=== PATIENT | female | born 1945 | race Caucasian/White ===

== ENCOUNTER 2021-05-20 05:33 | Day surgery (SDC) | payer MEDICARE, OTHER ==
[2021-05-13 14:16] LABS: BASOPHILS # (AUTO) 0.1 X10'3 (0-0.2); BASOPHILS % (AUTO) 0.7 % (0-1); EOSINOPHILS # (AUTO) 0.1 X10'3 (0-0.9); EOSINOPHILS % (AUTO) 0.8 % (0-6); LYMPHOCYTES # (AUTO) 1.9 X10'3 (1.1-4.8); MEAN CORPUSCULAR HEMOGLOBIN 31.8 PG (27.0-31.0); MEAN CORPUSCULAR HGB CONC 34.1 g/dL (33.0-36.5); MEAN CORPUSCULAR VOLUME 93.1 FL (78-98); MEAN PLATELET VOLUME 7.1 FL (7.4-10.4); MONOCYTES # (AUTO) 0.5 X10'3 (0-0.9); MONOCYTES % (AUTO) 7.3 % (2-12); NEUTROPHILS # (AUTO) 4.9 X10'3 (1.8-7.7); NEUTROPHILS % (AUTO) 66.2 % (42-75); PRE OP HEMATOCRIT 37.7 % (35.0-45.0); PRE OP HEMOGLOBIN 12.9 g/dL (12.0-16.0); PRE OP PLATELET COUNT 285 X10'3 (140-440); RED BLOOD COUNT 4.05 X10'6 (4.20-5.60)
[2021-05-13 14:35] LABS: CLARITY,URINE CLEAR (Clear); COLOR,URINE STRAW (Yellow); GLUCOSE, URINE NEGATIVE (Neg); KETONES,URINE NEGATIVE (Neg); LEUKOCYTE ESTERASE ,URINE NEGATIVE (Neg); NITRITES, URINE NEGATIVE (Neg); OCCULT BLOOD,URINE NEGATIVE (Neg); PROTEIN,URINE NEGATIVE (Neg); UA COLLECTION TYPE CLN CATCH MIDSTREAM; UROBILINOGEN,URINE 0.2 E.U/dL (0.2-1.0)
[2021-05-13 14:48] LABS: ALBUMIN 3.7 G/DL (3.4-5.0); ALKALINE PHOSPHATASE 89 IU/L (46-116); BLOOD UREA NITROGEN 16 MG/DL (7-18); BUN/CREATININE RATIO 19.8 (6.6-38.0); CALCIUM 8.7 MG/DL (8.5-10.1); CHLORIDE 103 MMOL/L (99-107); CREATININE 0.81 MG/DL (0.40-0.90); PRE OP ALT 26 U/L (30-65); PRE OP ANION GAP 7 (8-16); PRE OP AST 24 U/L (10-37); PRE OP BILIRUB, TOTAL 0.6 MG/DL (0.0-1.0); PRE OP GLUCOSE 134 MG/DL (70-104); PRE OP POTASSIUM 3.8 MMOL/L (3.4-5.1); PRE OP SODIUM 140 MMOL/L (135-145); TOTAL CARBON DIOXIDE 29.6 MMOL/L (24-32); TOTAL PROTEIN 7.4 G/DL (6.4-8.2); eGFR 69 ML/MIN
[~2021-05-20] VITALS: Ht 160 cm; Wt 70.5 kg
[2021-05-20] VITALS (16 sets, daily range): BP systolic 115–134; BP diastolic 56–78
[~2021-05-20 05:33] MED LIST: ASPI-611 PO; ATOR20TA66 PO; FISH OIL PO; FLEC100T2 PO; HYDR12.5 PO; LOSA25TA96 PO; MULT-620 PO; cefazolin/dext.iso 2gm/50ml 50 ML IV ONE; famotidine 20mg tablet PO ONE; ringers solution, lacted 1,000 ML IV SCH; vitamin c PO
[2021-05-20] MEDS ORDERED: bacitracin 15gm ointment TP ONE (06:41)
[2021-05-20] MEDS ORDERED: MIDAZolam 1 MG/ML 5ML VIAL ONE (07:30)
[2021-05-20] MEDS ORDERED: fentaNYL/PF 50MCG/1 ML 2ML syringe ONE (07:30)
[2021-05-20] MEDS ORDERED: ROPIVAcaine 0.5% (5mg/ml) 30ml vial ONE (07:33)
[2021-05-20] MEDS ORDERED: propofol 10mg/ml 20ml vial IV ONE (07:36)
[2021-05-20] MEDS ORDERED: sevoflurane 250ml liquid IH ONE (07:36)
[2021-05-20] MEDS ORDERED: dexamethasone sod phosphate 4mg/ml inj. ONE (08:18)
[2021-05-20] MEDS ORDERED: ROPIVAcaine 0.2% (10 MG/5 ML) BOLUS INJECTION POPLITEAL PRN (09:25)
[2021-05-20] MEDS ORDERED: ondansetron/PF 4mg/2ml inj IV PRN (09:25)
[2021-05-20] MEDS ORDERED: ROPIVAcaine 0.2%/PF PUMP/bolus 545 ML POPLITEAL SCH (09:25)
[2021-05-20] MEDS ORDERED: morphine 2 MG/ML inj. syringe IV PRN (09:25)
[2021-05-20] MEDS ORDERED: morphine 4 MG/ML inj SYRINge IV PRN (09:25)
[2021-05-20] MEDS ORDERED: meperidine/PF 25mg/ml syringe IV PRN ×3 (09:25)
[2021-05-20] MEDS ORDERED: proCHLORperazine 10 MG/2 ml inj IV PRN (09:25)
[2021-05-20] MEDS ORDERED: ringers solution, lacted 1,000 ML IV SCH (09:25)
[2021-05-20] MEDS ORDERED: ondansetron/PF 4mg/2ml inj ONE (10:00)
--- NOTE | 2021-05-20 10:28 | NUR ---
Received from OR via , accompanied by Anesthesiologist CORTNEY and report given by Anesthesiolgist. PT ARRIVES WITH 20G TO RIGHT HAND, DRESSING TO LEFT FOOT DELROY, VSS. Addendum: 05/20/21 at 1041 by Doretha Parry RN Amended: Links added.
--- NOTE | 2021-05-20 12:38 | NUR ---
PATIENT A&OX4, DENIES PAIN, V/S WNL, SCD OFF, 20G TO LUE D/C, PT'S LLE ICE AND ELEVATED. I HAVE REVIEWED D/C INSTRUCTIONS WITH PATIENT AND FAMILY MEMBER and they have verbalized understanding patient d/c home with all belongings and family gave transport home. PT REPORTS THAT SHE HAS HELP AT HOME 2 SONS AND GRANDAUGHTER. PT'S DAUGHTER IS FLYING IN ON SUNDAY TO HELP WITH CARE. Addendum: 05/20/21 at 1252 by Ute Lamb RN, RN Amended: Links added.
== END 2021-05-20 12:38 | disposition home or self-care (01) ==
LOC: PAS 05:33
PROVIDERS: ATTEND Podiatrist Foot & Ankle Surgery
DX: M19.072 Primary osteoarthritis, left ankle and foot (principal); M77.8 Other enthesopathies, not elsewhere classified; G43.909 Migraine, unspecified, not intractable, without status migrainosus; I10 Essential (primary) hypertension; I47.1 Supraventricular tachycardia; G89.18 Other acute postprocedural pain; Z79.899 Other long term (current) drug therapy; Z20.822 Contact with and (suspected) exposure to COVID-19; Z87.891 Personal history of nicotine dependence; Z96.653 Presence of artificial knee joint, bilateral; Z90.710 Acquired absence of both cervix and uterus; Z98.890 Other specified postprocedural states
CPT/HCPCS: 20900; 28122; 28730; 36415; 64446; 64447; 73630; 76000; 76937; 76942; 80053; 81003; 82948; 85025; 93005; A6223; C1713; J1100; J2250; J2405; J2795; J3010; U0003; U0005; Z7506; Z7508; Z7512; A4215; A4618; A6449; A7000; J2704; J7120

== ENCOUNTER 2022-08-11 05:09 | Day surgery (SDC) | payer MEDICARE, OTHER ==
[2022-08-01 15:24] LABS: CLARITY,URINE SLIGHTLY CLOUDY (Clear); COLOR,URINE YELLOW (Yellow); GLUCOSE, URINE NEGATIVE (Neg); KETONES,URINE NEGATIVE (Neg); LEUKOCYTE ESTERASE ,URINE NEGATIVE (Neg); NITRITES, URINE NEGATIVE (Neg); OCCULT BLOOD,URINE NEGATIVE (Neg); PROTEIN,URINE NEGATIVE (Neg); UROBILINOGEN,URINE 0.2 E.U/dL (0.2-1.0)
[2022-08-01 15:27] LABS: BASOPHILS # (AUTO) 0.1 X10'3 (0-0.2); EOSINOPHILS # (AUTO) 0.1 X10'3 (0-0.9); LYMPHOCYTES # (AUTO) 1.8 X10'3 (1.1-4.8); LYMPHOCYTES % (AUTO) 24.7 % (21-51); MEAN CORPUSCULAR HEMOGLOBIN 31.5 PG (27.0-31.0); MEAN CORPUSCULAR HGB CONC 33.5 g/dL (33.0-36.5); MEAN CORPUSCULAR VOLUME 93.8 FL (78-98); MEAN PLATELET VOLUME 7.2 FL (7.4-10.4); MONOCYTES # (AUTO) 0.6 X10'3 (0-0.9); MONOCYTES % (AUTO) 7.7 % (2-12); NEUTROPHILS # (AUTO) 4.7 X10'3 (1.8-7.7); NEUTROPHILS % (AUTO) 65.6 % (42-75); PRE OP HEMATOCRIT 38.2 % (35.0-45.0); PRE OP HEMOGLOBIN 12.8 g/dL (12.0-16.0); PRE OP PLATELET COUNT 303 X10'3 (140-440); RED BLOOD COUNT 4.07 X10'6 (4.20-5.60); RED CELL DISTRIBUTION WIDTH 13.1 % (11.5-14.5)
[2022-08-01 15:29] LABS: UA COLLECTION TYPE CLN CATCH MIDSTREAM
[2022-08-01 15:32] LABS: BACTERIA,URINE NONE SEEN /HPF (Neg); MUCUS STRANDS NONE SEEN /LPF (Neg); RBC,URINE NONE SEEN /HPF (0-2); SQUAMOUS EPITHELIAL CELL,UR MODERATE /LPF (FEW); WBC,URINE 0-4 /HPF (0-4)
[2022-08-01 15:43] LABS: ALBUMIN/GLOBULIN RATIO 1.1 (1.1-1.5); ALKALINE PHOSPHATASE 86 IU/L (46-116); BLOOD UREA NITROGEN 11 MG/DL (7-18); BUN/CREATININE RATIO 13.8 (6.6-38.0); CALCIUM 9.2 MG/DL (8.5-10.1); CHLORIDE 96 MMOL/L (99-107); PRE OP ALT 33 U/L (30-65); PRE OP ANION GAP 7 (8-16); PRE OP AST 30 U/L (10-37); PRE OP BILIRUB, TOTAL 0.6 MG/DL (0.0-1.0); PRE OP GLUCOSE 100 MG/DL (70-104); PRE OP POTASSIUM 3.5 MMOL/L (3.4-5.1); PRE OP SODIUM 134 MMOL/L (135-145); TOTAL CARBON DIOXIDE 31.3 MMOL/L (24-32); TOTAL PROTEIN 7.6 G/DL (6.4-8.2); eGFR 70 ML/MIN
[~2022-08-11] VITALS: Ht 157.5 cm; Wt 71.8 kg
[2022-08-11] VITALS (8 sets, daily range): BP systolic 121–142; BP diastolic 58–71
[~2022-08-11 05:09] MED LIST changes: +AMLO5TAB16 PO; -FLEC100T2 PO; +LOSA100T57 PO; -LOSA25TA96 PO; +VITAMIN A; +[UNRECOGNIZED DRUG - OTHER]; +[UNRECOGNIZED DRUG - OTHER]; -cefazolin/dext.iso 2gm/50ml 50 ML IV ONE; -famotidine 20mg tablet PO ONE
[2022-08-11] MEDS ORDERED: ceFAZolin inj. 2,000 MG in dextrose 5%-water 100 ML IV ONE (05:30)
[2022-08-11] MEDS ORDERED: famotidine 20mg tablet PO ONE (05:30)
[2022-08-11] MEDS ORDERED: bacitracin 15gm ointment TP ONE (06:44)
[2022-08-11] MEDS ORDERED: BUPIVAcaine 0.5% inj/PF 30 ML ONE (06:44)
[2022-08-11] MEDS ORDERED: sevoflurane 250ml liquid IH ONE (07:24)
[2022-08-11] MEDS ORDERED: fentaNYL/PF 50MCG/1 ML 2ML syringe ONE (07:29)
[2022-08-11] MEDS ORDERED: dexamethasone sod phosphate 4mg/ml inj. ONE (07:40)
[2022-08-11] MEDS ORDERED: propofol inj 20 ML IV ONE (07:40)
[2022-08-11] MEDS ORDERED: ondansetron/PF 4mg/2ml inj ONE (07:40)
[2022-08-11] MEDS ORDERED: LIDOcaine 2% (20mg/ml) 5ml vial ONE (07:40)
[2022-08-11] MEDS ORDERED: midazolam 1 mg/ML 2ml injection ONE (07:40)
[2022-08-11] MEDS ORDERED: BUPIVAcaine 0.5% inj/PF 30 ml vial IJ ONE (07:54)
[2022-08-11] MEDS ORDERED: hydrALAZINE 20mg/ml inj. IV PRN (08:20)
[2022-08-11] MEDS ORDERED: ringers solution, lacted 1,000 ML IV SCH (08:20)
[2022-08-11] MEDS ORDERED: fentaNYL/PF 50MCG/1 ML 2ML syringe IV PRN ×2 (08:20)
[2022-08-11] MEDS ORDERED: meperidine/PF 25mg/ml syringe IV PRN (08:20)
[2022-08-11] MEDS ORDERED: acetaminophen 1,000mg/100ml IV 100 ML IV PRN (08:20)
[2022-08-11] MEDS ORDERED: ketorolac tromethamine 15mg/ml inj. IV ONE (08:20)
[2022-08-11] MEDS ORDERED: proCHLORperazine 10 MG/2 ml inj IV PRN (08:20)
[2022-08-11] MEDS ORDERED: morphine 4 MG/ML inj SYRINge IV PRN (08:20)
[2022-08-11] MEDS ORDERED: labetalol 20mg/4ml (5mg/ml) syringe IV PRN (08:20)
[2022-08-11] MEDS ORDERED: ondansetron/PF 4mg/2ml inj IV PRN (08:20)
[2022-08-11] MEDS ORDERED: morphine 2 MG/ML inj. syringe IV PRN (08:20)
--- NOTE | 2022-08-11 08:30 | NUR ---
Received from OR via BED, accompanied by Anesthesiologist and report given by Anesthesiologist. PATIENT WAKING UP, NO S/S OF PAIN, V/S WNL, SCD ON, 20G TO RUE, LEFT FOOT SPLINT BOOT WITH DRESSING INSIDE W/ 4X4 CAMILA WRAP CDI
--- NOTE | 2022-08-11 09:30 | NUR ---
PATIENT A&OX4, DENIES PAIN, V/S WNL, SCD OFF, 20G TO RUE D/C, LEFT FOOT SPLINT BOOT WITH DRESSING INSIDE W/ 4X4 CAMILA WRAP CDI . . I HAVE REVIEWED D/C INSTRUCTIONS WITH PATIENT and they have verbalized understanding patient d/c home with all belongings and family gave transport home.
== END 2022-08-11 09:30 | disposition home or self-care (01) ==
LOC: PAS 05:09
PROVIDERS: ATTEND Podiatrist Foot & Ankle Surgery
DX: M25.872 Other specified joint disorders, left ankle and foot (principal); M19.072 Primary osteoarthritis, left ankle and foot; I10 Essential (primary) hypertension; I47.1 Supraventricular tachycardia; G43.909 Migraine, unspecified, not intractable, without status migrainosus; Z98.890 Other specified postprocedural states; Z79.899 Other long term (current) drug therapy; Z87.891 Personal history of nicotine dependence; Z96.653 Presence of artificial knee joint, bilateral; Z79.82 Long term (current) use of aspirin
CPT/HCPCS: 28122; 28315; 36415; 80053; 81001; 82948; 85025; 93005; A6223; J0690; J1100; J2250; J2405; J2704; J3010; J3490; J7030; J7060; J7120; S0020; Z7506; Z7508; Z7512; A4215; A4618; A6449; A7000